=== PATIENT | male | born 1950 | race Caucasian/White ===

== ENCOUNTER 2022-02-02 10:17 | Outpatient (REF) | payer MEDICARE, OTHER, SELFPAY ==
[2022-02-02 14:29] LABS: Anion Gap 9 (12-20); Blood Urea Nitrogen 12 mg/dL (9-16); Calcium 9.5 mg/dL (8.4-10.2); Carbon Dioxide 29 mmol/L (22-29); Chloride 107 mmol/L (96-108); Estimated Glomerular Filt Rate > 60; Glucose Random 73 mg/dL (60-115); Potassium 4.4 mmol/L (3.3-5.1); Sodium 141 mmol/L (135-145)
== END 2022-02-02 10:18 | disposition home or self-care (01) ==
LOC: HO.WFDLDS 10:17
PROVIDERS: Visit Provider Hospitalist
DX: I10 Essential (primary) hypertension (principal)
CPT/HCPCS: 36415; 80048

== ENCOUNTER 2022-02-09 11:05 | Outpatient (REF) | payer MEDICARE, OTHER, SELFPAY ==
[2022-02-09 13:49] LABS: Cholesterol 181 mg/dL; HDL Cholesterol 58 mg/dL; LDL Cholesterol Calculated 112 mg/dl; Triglycerides 55 mg/dL
[2022-02-09 14:10] LABS: TSH reflex Free T4 1.73 uIU/mL (0.32-4.0)
== END 2022-02-09 11:06 | disposition home or self-care (01) ==
LOC: HO.WFDLDS 11:05
PROVIDERS: Visit Provider Hospitalist
DX: Z00.00 Encounter for general adult medical examination without abnormal findings (principal)
CPT/HCPCS: 36415; 80061; 84443